=== PATIENT | male | born 1990 | race Caucasian/White ===

== ENCOUNTER 2020-02-16 18:06 | Emergency (ER) | payer OTHER ==
[2020-02-16 18:17] VITALS: BP 150/95
[2020-02-16] MEDS ORDERED: KETOROLAC 60 MG/2 ML VIAL IM STA (18:34)
--- NOTE | 2020-02-16 18:42 | ED Physician Documentation ---
History of Present Illness - Stated complaint Stated Complaint: MID BACK PX - Chief complaint Chief Complaint: Back Pain - History obtained from History obtained from: Patient - History of Present Illness Timing: Prior to arrival, How many hours ago (8) - Additonal information Additional information: 29-year-old male presents to the emergency department for evaluation of right lateral thoracic back pain. He reports that earlier this morning he was helping his friend work out and he was helping support his feet while his partner was doing chin ups. While supporting his partner he felt a pop and pull in the right side of his back. He has had constant pain since then. It hurts to take a deep breath. He has no cough or fevers. No hemoptysis. He denies any previous history of low back pain. He denies hematuria or urinary symptoms. Patient has not taken anything for pain. He reports that when he takes NSAID medication he deposits iron in the skin in his feet Review of Systems Constitutional: denies: Fever, Chills, Fatigue, Weight Loss, Sweats Cardiac: denies: Chest pain / pressure, Palpitations, Pedal edema Respiratory: denies: Dyspnea, Cough, Hemoptysis GI: denies: Abdominal Pain, Abdominal Swelling, Nausea, Vomiting : denies: Dysuria, Hesitancy, Hematuria Skin: denies: Rash, Lesions Musculoskeletal: reports: Back pain. denies: Neck pain, Joint pain, Extremity swelling Neurologic: denies: Syncope, Headache Psychiatric: denies: Depressed, Suicidal Endocrine: denies: Polydypsia PD PAST MEDICAL HISTORY - Past Medical History Past Medical History: No - Past Surgical History Past Surgical History: Yes HEENT: Tonsil/Adenoidectomy - Present Medications Home Medications: Ambulatory Orders Medication Instructions Recorded Confirmed Acetaminophen [Tylenol] 650 mg PO Q6H PRN #30 tab 02/16/20 Methocarbamol [Robaxin-750] 750 mg PO TID PRN #30 tablet 02/16/20 - Allergies Allergies/Adverse Reactions: Allergies Allergy/AdvReac Type Severity Reaction Status Date / Time No Known Drug Allergies Allergy Verified 02/16/20 18:18 - Social History Does the pt smoke?: No Smoking Status: Never smoker Does the pt drink ETOH?: Yes ETOH Use: Beer Does the pt have substance abuse?: No - Immunizations Immunizations are current?: Yes - POLST Patient has POLST: No PD ED PE NORMAL - General General: Alert and oriented X 3, No acute distress, Well developed/nourished - HEENT HEENT: PERRL, EOMI, Ears normal - Cardiac Cardiac: RRR, No murmur - Respiratory Respiratory: No respiratory distress, Clear bilaterally - Abdomen Abdomen: Normal bowel sounds, Soft - Back Back: No CVA TTP, No spinal TTP, Other (right lateral thoracic back pain with palpation. full ROM of lower lumbar spine) - Derm Derm: Normal color, No rash - Extremities Extremities: No deformity, No tenderness to palpate, Normal ROM s pain - Neuro Neuro: Alert and oriented X 3, mercury cell cleaner 2-12 intact, No motor deficit Eye Opening: Spontaneous Motor: Obeys Commands Verbal: Oriented GCS Score: 15 Results - Vitals Vitals: Vital Signs - 24 hr 02/16/20 18:14 Temperature 36.6 C Heart Rate 76 Respiratory 18 Rate Blood Pressure 150/95 H O2 Saturation 97 Oxygen O2 Source Room air - Rads (name of study) cxr Radiology: Final report received (no acute cardiopulmonary process) PD MEDICAL DECISION MAKING - ED course Complexity details: reviewed results, d/w patient, d/w family ED course: 29-year-old male presents to the emergency department with acute onset right lateral thoracic back pain that he developed when he was helping his body do chin-ups by supporting him. - Chest x-ray is negative for any acute cardiopulmonary process. Patient was given some Toradol in the emergency department with minor relief of the pain. At this time I feel that this gentleman has a mechanical thoracic back pain. Patient will be given a prescription for Tylenol as he reports adverse reaction to NSAIDs as well as a limited amount of methocarbamol as a muscle relaxer. I have advised him close follow-up with base physician. Emergent return precautions discussed Departure - Departure Disposition: 01 Home, Self Care Clinical Impression: Acute thoracic back pain Qualifiers: Back pain laterality: right Qualified Code(s): M54.6 - Pain in thoracic spine Condition: Stable Instructions: ED Spasm Back No Trauma Prescriptions: Methocarbamol [Robaxin-750] 750 mg PO TID PRN #30 tablet PRN Reason: Spasms Acetaminophen [Tylenol] 650 mg PO Q6H PRN #30 tab PRN Reason: Pain Comments: The x-ray of your chest does not show any findings of broken bone or ribs. I think it is likely that you have pulled 1 of your upper back muscles when helping your friend do the chin ups. Please take the Tylenol as prescribed. I have also ordered a limited number of her Vimovo as a muscle relaxer. Be cautious in some patients it may make him dizzy or unable to drive. If you find that your back pain is worsening, you have fevers cough or difficulty breathing then please return to the emergency department
--- NOTE | 2020-02-16 19:08 | XRAY Report ---
PROCEDURE: Chest 2 View X-Ray INDICATIONS: cough TECHNIQUE: 2 view(s) of the chest. COMPARISON: None. FINDINGS: Surgical changes and devices: None. Lungs and pleura: No pleural effusions or pneumothorax. Lungs are clear. Mediastinum: Mediastinal contours are normal. Heart size is normal. Bones and chest wall: No suspicious bony abnormalities. Soft tissues appear unremarkable. IMPRESSION: No acute cardiopulmonary findings. Reviewed by: Courtney Holly MD on 02/16/2020 7:07 PM PDT Approved by: Courtney Holly MD on 02/16/2020 7:07 PM PDT Station ID: [id number]
== END 2020-02-16 19:43 | disposition home or self-care (01) ==
LOC: ED 18:06
DX: M54.6 Pain in thoracic spine (principal)
CPT/HCPCS: 71046; 96372; 99283; 99284

== ENCOUNTER 2020-04-06 18:18 | Emergency (ER) | payer OTHER ==
--- NOTE | 2020-04-06 18:26 | ED Physician Documentation ---
PD HPI LOWER EXT INJURY - Stated complaint Stated Complaint: LT ANKLE PX - Chief complaint Chief Complaint: Ext Problem - History obtained from History obtained from: Patient - History of Present Illness PD HPI LOW EXT INJURY LOCATION: Left, Ankle Type of injury: Twist (inversion injury with "pop" yesterday, with continued pain on walking and movement of ankle. Had swelling but improved today after good coban wrap on it.) Timing - onset: Yesterday Timing - duration: Days (1) Timing - details: Abrupt onset, Still present Improved by: Ice, Dressing Worsened by: Moving, Palpating, Other (walking) Associated symptoms: Swelling. No: Weakness, Numbness Similar symptoms before: Has not had sx before Review of Systems Constitutional: denies: Fever Nose: denies: Rhinorrhea / runny nose, Congestion Throat: denies: Sore throat Respiratory: denies: Cough GI: denies: Vomiting, Diarrhea Skin: denies: Abrasion (s), Laceration (s) PD PAST MEDICAL HISTORY - Past Medical History Past Medical History: No - Past Surgical History Past Surgical History: Yes HEENT: Tonsil/Adenoidectomy - Present Medications Home Medications: Ambulatory Orders Medication Instructions Recorded Confirmed Acetaminophen [Tylenol] 650 mg PO Q6H PRN #30 tab 02/16/20 Methocarbamol [Robaxin-750] 750 mg PO TID PRN #30 tablet 02/16/20 Ibuprofen [Motrin] 600 mg PO TID PRN #25 tab 04/06/20 - Allergies Allergies/Adverse Reactions: Allergies Allergy/AdvReac Type Severity Reaction Status Date / Time No Known Drug Allergies Allergy Verified 04/06/20 18:25 - Social History Does the pt smoke?: No Smoking Status: Never smoker Does the pt drink ETOH?: Yes Does the pt have substance abuse?: No - Immunizations Immunizations are current?: Yes - POLST Patient has POLST: No PD ED PE NORMAL - Vitals Vital signs reviewed: Yes - General General: Alert and oriented X 3, No acute distress, Well developed/nourished - Derm Derm: Normal color, Warm and dry - Extremities Extremities: Other (good wrap on ankle. Minimal swelling. Tender at anterolateral ankle and side of proximal foot. Achilles firm and nontender. Medially not tender. Pain with inversion testing, but no gross laxity. Some tender to base of 5th MT. ) - Neuro Neuro: Alert and oriented X 3, No motor deficit, Normal speech Results - Vitals Vitals: Vital Signs - 24 hr 04/06/20 04/06/20 04/06/20 18:21 18:26 19:25 Temperature 36.9 C 36.9 C 36.9 C Heart Rate 102 H 102 H 98 Respiratory 16 16 16 Rate Blood Pressure 144/85 H 144/85 H 138/82 H O2 Saturation 97 97 100 Oxygen O2 Source Room air - Rads (name of study) ankle xray left Radiology: Prelim report reviewed (no fractures (base 5th MT is visualized in the xray. ), See rad report PD MEDICAL DECISION MAKING - ED course Complexity details: reviewed results, re-evaluated patient (hurting enough with walking. Accepts offer of crutches. Will treat with ankle brace. ), considered differential, d/w patient Departure - Departure Disposition: Home, Self Care Clinical Impression: Ankle sprain Qualifiers: Encounter type: initial encounter Involved ligament of ankle: anterior talofibular ligament Laterality: left Qualified Code(s): S93.492A - Sprain of other ligament of left ankle, initial encounter Condition: Stable Record reviewed to determine appropriate education?: Yes Instructions: ED Sprain Ankle W X Ray Follow-Up: JAVIER NIXON ARNP [Primary Care Provider] - Prescriptions: Ibuprofen [Motrin] 600 mg PO TID PRN #25 tab PRN Reason: Pain Comments: No fractures seen on the x-ray. Ankle sprains can still hurt for several days to even a couple of weeks. Use the ankle brace when up and around for the next 2 to 3 weeks until fully healed. Crutches initially for nonweightbearing or partial weightbearing and progress as tolerated over several days or so. Elevate ice and rest your ankle often tonight and tomorrow. Ibuprofen 3 times a day for the next week. Add Tylenol if needed. Recheck if not improving well over the next several days and resolved within a week or so. Forms: Activity restrictions Discharge Date/Time: 04/06/20 19:32
[2020-04-06] MEDS ORDERED: HYDROcod/ACETAM 5/325 MG TABLET PO STA (18:41)
[2020-04-06] MEDS ORDERED: IBUPROFEN 600 MG TABLET PO STA (18:41)
[2020-04-06 19:27] VITALS: BP 138/82
--- NOTE | 2020-04-06 19:45 | XRAY Report ---
PROCEDURE: Ankle 3 View LT INDICATIONS: inversion with lateral ankle/foot pain since last TECHNIQUE: 3 views of the ankle were acquired. COMPARISON: None FINDINGS: Bones: No fractures or dislocations. Ankle mortise is normally aligned. No suspicious bony lesions . Soft tissues: No tibiotalar joint effusion. Achilles tendon appears normal. IMPRESSION: No fracture. No osseous lesion. If there is continued clinical concern for pathology, then repeat juan in film radiographs (7-10 days) or advanced imaging (CT, MR, bone scan) should be considered for furt her evaluation. Reviewed by: Wendy Guzmán MD, PhD on 04/06/2020 7:44 PM PDT Approved by: Wendy Guzmán MD, PhD on 04/06/2020 7:44 PM PDT Station ID: [id number]
== END 2020-04-06 19:32 | disposition home or self-care (01) ==
LOC: ED 18:18
DX: S93.492A Sprain of other ligament of left ankle, initial encounter (principal); X50.1XXA Overexertion from prolonged static or awkward postures, initial encounter; Y93.01 Activity, walking, marching and hiking
CPT/HCPCS: 73610; 99282; 99283; A9270

== ENCOUNTER 2021-07-21 13:14 | Emergency (ER) | payer OTHER ==
[2021-07-21 13:24] VITALS: BP 149/77
--- NOTE | 2021-07-21 13:27 | ED Physician Documentation ---
PD HPI UPPER EXT INJURY - Stated complaint Stated Complaint: R PINKY LAC - Chief complaint Chief Complaint: Laceration - History obtained from History obtained from: Patient - History of Present Illness Location: Right, Finger Type of injury: Laceration (Patient states he was climbing over a wire fence and his finger got caught on the edge of the wiring and had a laceration. 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.) Timing - onset: Last night Timing - details: Abrupt onset, Still present (still some bleeding with movement.) Worsened by: Moving, Palpating Associated symptoms: No: Weakness, Numbness, Swelling Similar symptoms before: Has not had sx before Review of Systems Constitutional: denies: Fever, Chills Nose: denies: Rhinorrhea / runny nose, Congestion Throat: denies: Sore throat Respiratory: denies: Cough Skin: reports: Laceration (s) Neurologic: denies: Focal weakness, Numbness PD PAST MEDICAL HISTORY - Past Medical History Cardiovascular: None Endocrine/Autoimmune: None - Past Surgical History Past Surgical History: Yes HEENT: Tonsil/Adenoidectomy - Present Medications Home Medications: Ambulatory Orders Medication Instructions Recorded Confirmed No Known Home Medications 07/21/21 07/21/21 - Allergies Allergies/Adverse Reactions: Allergies Allergy/AdvReac Type Severity Reaction Status Date / Time No Known Drug Allergies Allergy Verified 07/21/21 13:24 - Social History Does the pt smoke?: No Smoking Status: Never smoker Does the pt drink ETOH?: Yes Does the pt have substance abuse?: No - Immunizations Immunizations are current?: Yes - POLST Patient has POLST: No PD ED PE NORMAL - Vitals Vital signs reviewed: Yes - General General: Alert and oriented X 3, Well developed/nourished - Derm Derm: Normal color, Warm and dry - Extremities Extremities: Other (The right little finger on the palmar aspect on the distal phalanx and just crossing the DIP joint shows a vertically oriented laceration 3.2 cm to the fatty tissue without foreign body. Edges are slightly ragged.) - Neuro Neuro: No motor deficit, No sensory deficit Results - Vitals Vitals: Vital Signs - 24 hr 07/21/21 13:19 Temperature 36.4 C L Heart Rate 67 Respiratory 16 Rate Blood Pressure 149/77 H O2 Saturation 99 Oxygen O2 Source Room air Procedures - Laceration (location) right little finger Length in cm: 3.2 Wound type: Irregular, Into subcut fat Neurovascular status: Sensory intact, Motor intact, Vascular intact Tendon involvement: Tendon intact Anesthesia: Marcaine 0.5% Wound preparation: Wound explored, To the base Skin layer closure: Nylon, Running, Size #-0 - enter number (4), Sutures - enter # (12) Other: Patient tolerated well, No complications, Dressing applied, Tetanus UTD PD MEDICAL DECISION MAKING - ED course Complexity details: considered differential, d/w patient Departure - Departure Disposition: Home, Self Care Clinical Impression: Laceration of little finger Qualifiers: Encounter type: initial encounter Damage to nail status: without damage Foreign body presence: without foreign body Laterality: right Qualified Code(s): S61.216A - Laceration without foreign body of right little finger without damage to nail, initial encounter Condition: Stable Record reviewed to determine appropriate education?: Yes Instructions: ED Laceration Hand Follow-Up: CHERRY LOGAN MD [Primary Care Provider] - Comments: It is okay to wash and shower. Clean off the wound twice a day with soap and water, or peroxide and water. Apply some antibiotic ointment to it to keep it moist. Also to watch for signs of infection such as purulence, redness or increasing pain. Return to your primary care or the ER at the specified time for suture removal. Suture removal in 10 to 14 days. Tylenol ibuprofen as needed for pains. Use of the hand is good with obviously being somewhat gentle with the finger.
== END 2021-07-21 14:15 | disposition home or self-care (01) ==
LOC: ED 13:14
DX: S61.216A Laceration without foreign body of right little finger without damage to nail, initial encounter (principal); W26.8XXA Contact with other sharp object(s), not elsewhere classified, initial encounter; Y93.89 Activity, other specified; Y92.89 Other specified places as the place of occurrence of the external cause
CPT/HCPCS: 12002; 99281